=== PATIENT | female | born 1970 | race Caucasian/White ===

== ENCOUNTER 2019-12-07 13:17 | Emergency (ER) | payer BC, SELFPAY ==
[2019-12-07 13:31] VITALS: BP 150/101; PULSE 78; RESP 20; TEMP 36.4; O2SAT 97; BMI 24.3
--- NOTE | 2019-12-07 13:37 | XR_ITS ---
PROCEDURE: XR CHEST 2V CLINICAL HISTORY: cough COMPARISON: XR CHEST 2V from 09/14/2019 FINDINGS: The cardiomediastinal silhouette and pulmonary vascularity are within normal limits. Patchy infiltrate is present in the lingula. This is not significantly changed than when compared to the previous study. No acute bony abnormalities. IMPRESSION: Persistent lingular infiltrate. CT with contrast may provide further evaluation in the setting of a chronic infiltrate Dictated by: Maxim Poon MD 12/07/2019 15:48 Electronically signed by Maxim Poon MD in [place] 12/07/2019 15:48
--- NOTE | 2019-12-07 13:42 | PC.NURSE ---
PT TO RAD
--- NOTE | 2019-12-07 13:51 | HMH.EDUTC ---
[facility] – [place] Disposition Clinical Impression: Pneumonia Qualifiers: Pneumonia type: due to unspecified organism Laterality: unspecified laterality Lung location: unspecified part of lung Qualified Code(s): J18.9 - Pneumonia, unspecified organism Disposition: Home, Self-Care Condition on Discharge: Good Instructions: Pneumonia-Adult Additional Instructions: Drink plenty of fluids. Take tylenol or ibuprofen for pain or fever. Take the medications as directed. Follow up with your regular doctor. GO TO THE ER FOR ANY WORSENING SYMPTOMS Prescriptions: Promethazine/Dextromethorphan [Promethazine-Dm Syrup] 5 ml PO Q6HP PRN #240 syrup PRN Reason: Cough Transmission Status: Received by [facility] levoFLOXacin [Levaquin 500mg tab] 500 mg PO DAILY #7 tab Transmission Status: Received by [facility] methylPREDNISolone [Medrol] 4 mg PO DIRECTED 6 Days #21 tab.ds.pk Transmission Status: Received by [facility] guaiFENesin [Mucinex 600mg tablet] 1 - 2 tab PO BIDP PRN #30 tab.er.[id number] PRN Reason: Congestion Transmission Status: Received by [facility] Referrals: Provider,Referral, MD [Primary Care Provider] - Forms: Work/School Release Time of Disposition: 14:20 Medical Decision Making - Medical Records Medical records reviewed: No: I reviewed the patient's medical records. - Jack Inquiry Pt receiving controlled substance: No Vital Signs: 12/07/19 13:31 12/07/19 14:37 Temperature 97.5 F L 97.6 F Temperature Source Oral Pulse Rate 78 Pulse Rate [Left Radial] 78 Respiratory Rate 20 20 Blood Pressure 150/101 H Blood Pressure [Left Arm] 150/101 H Blood Pressure Mean [Left Arm] 117 Blood Pressure Source [Left Arm] Automatic Cuff Blood Pressure Position [Left Arm] Sitting 02 Sat by Pulse Oximetry 97 Oxygen Delivery Method Room Air - Lab Data Lab results reviewed: Yes: I reviewed the patient's lab results. Lab Results 12/07/19 13:38: Strep Scn Rapid Clinic Negative Orders (Tests/Meds): ED MEDICATIONS Discontinued Medications Generic Name Dose Route Start Last Admin Trade Name Freq PRN Reason Stop Dose Admin Ceftriaxone Sodium 1 gm 12/07/19 14:04 12/07/19 14:13 Rocephin 1gm Vial IM 12/07/19 14:05 1 gm ONCE ONE Administration Protocol Lidocaine HCl 0 ml 12/07/19 14:04 12/07/19 14:13 Lidocaine 1% 10ml Mdv IM 12/07/19 14:05 2.1 ml ONCE ONE Administration Methylprednisolone Sodium Succinate 125 mg 12/07/19 14:04 12/07/19 14:13 Solu-Medrol 125mg/2ml Vial IM 12/07/19 14:05 125 mg ONCE ONE Administration ORDERS Category Date Time Status SARS-CoV-2, VIVIANE Stat Lab 12/07/19 14:40 Received Strep Screen Confirmation Stat Micro 12/07/19 13:38 Received - Radiology Data #1 Image(s): Chest Image Reviewed: Yes I reviewed the patient's radiology image, Yes I have reviewed radiologist's interpretation Preliminary Findings: Abnormal PROCEDURE: XR CHEST 2V CLINICAL HISTORY: cough COMPARISON: XR CHEST 2V from 09/14/2019 FINDINGS: The cardiomediastinal silhouette and pulmonary vascularity are within normal limits. Patchy infiltrate is present in the lingula. This is not significantly changed than when compared to the previous study. No acute bony abnormalities. IMPRESSION: Persistent lingular infiltrate. CT with contrast may provide further evaluation in the setting of a chronic infiltrate Dictated by: Maxim Poon MD 12/07/2019 15:48 Electronically signed by Maxim Poon MD in [place] 12/07/2019 15:48 [facility] [place] HPI - General Stated complaint: cough,ear pain Time Seen by Provider: 12/07/19 13:51 Mode of Arrival: Ambulatory Source of Information: Patient Limitations: No Limitations Description of Symptoms (Recalled from Triage Doc. by RN): PT STATES THAT SHE INITIALLY BECAME ILL WITH AN URI A DAY BEFORE AND GOT BETTER. PT STATES THAT IT RETURNED IN AUGUST A
[2019-12-07 13:55] LABS: UTC Strep Screen (Rapid) Negative (Negative)
--- NOTE | 2019-12-07 14:04 | PC.NURSE ---
NOTIFIED ROBERTA IN LAB OF COVID SWAB ORDER
[2019-12-07 14:37] VITALS: BP 150/101; PULSE 78; RESP 20; TEMP 36.4; O2SAT 97
[2019-12-10 08:39] LABS: Covid-19 Nasal PCR Sendout Lex Not Detected
--- NOTE | 2019-12-10 08:54 | PC.NURSE ---
0848 PT NOTIFIED OF NEAGTIVE COVID-19 TEST RESULTS
== END 2019-12-07 14:40 | disposition home or self-care (01) ==
PROVIDERS: Emergency Provider Nurse Practitioner Family
DX: J18.9 Pneumonia, unspecified organism (principal); Z90.09 Acquired absence of other part of head and neck
CPT/HCPCS: 71046; 87880; 96372; 99202; 99203; U0004

== ENCOUNTER 2020-11-13 11:59 | Emergency (ER) | payer BC, SELFPAY ==
[2020-11-13 12:14] VITALS: BP 146/89; PULSE 86; RESP 17; TEMP 36.7; O2SAT 98; BMI 23.8
--- NOTE | 2020-11-13 12:24 | HMH.EDUTC ---
[facility] [place] Clinical Impression: Rash Disposition: Home, Self-Care Condition on Discharge: Good Instructions: Fibromyalgia (Alternative Therapy), DI for Rash Additional Instructions: Take medication as prescribed Follow up with Family Doctor if no improvement or any worsening of symptoms Return if needed Straight to ER if any life threatening symptoms Prescriptions: methylPREDNISolone [Medrol 4mg tab] 4 mg PO DIRECTED #21 tab Transmission Status: Received by [facility] Referrals: Reji Cox MD [Primary Care Provider] - As needed Time of Disposition: 12:34 Medical Decision Making - Jack Inquiry Pt receiving controlled substance: No Jack was queried for this patient: No Vital Signs: 11/13/20 12:14 11/13/20 12:41 Temperature 98.1 F 98.1 F Temperature Source Oral Oral Pulse Rate 86 Pulse Rate [Right Brachial] 86 Respiratory Rate 17 17 Blood Pressure 146/89 H Blood Pressure [Right Arm] 146/89 H Blood Pressure Mean [Right Arm] 108 Blood Pressure Source Automatic Cuff Blood Pressure Source [Right Arm] Automatic Cuff Blood Pressure Position Sitting Blood Pressure Position [Right Arm] Sitting 02 Sat by Pulse Oximetry 98 Oxygen Delivery Method Room Air Room Air Orders (Tests/Meds): ED MEDICATIONS Discontinued Medications Generic Name Dose Route Start Last Admin Trade Name Freq PRN Reason Stop Dose Admin Methylprednisolone Sodium Succinate 125 mg 11/13/20 12:28 11/13/20 12:33 Methylprednisolone Sod Succ 125mg Vial IM 11/13/20 12:29 125 mg ONCE ONE Administration Medical Decision Narrative: Patient state that she has taken solu medrol before without reaction or complications [facility] [place] - General Stated complaint: hives Time Seen by Provider: 11/13/20 12:24 Mode of Arrival: Ambulatory Source of Information: Patient Limitations: No Limitations Description of Symptoms (Recalled from Triage Doc. by RN): Pt complains hernán hives & swollen knots on face, legs & back x3 days. HEENT Symptoms (Recalled from RN notes): No Resp Symptoms (Recalled from RN notes): No Skin Symptoms (Recalled from RN notes): Yes MS Symptoms (Recalled from RN notes): No Functional Status (Recalled from RN notes): wnl - History of Present Illness Provider Complaint: Patient state that she has fibro and sometimes breaks out in rash has hives and small hard like areas under her skin State that she sometimes has to come in and get a steriod shot and medrol pack to help with the rash State that she noticed it a couple days ago and it has continued to get worse so she came in - Related Data Home Medications Medication Instructions Recorded Confirmed Cyclobenzaprine HCl [Flexeril 10mg 20 mg PO Q8HP PRN 09/14/19 09/18/20 tablet] lamoTRIgine [Lamotrigine] 200 mg PO HS 09/14/19 09/18/20 levETIRAcetam [Keppra 500mg tablet] 1,000 mg PO BID 09/14/19 09/18/20 nadoloL [Corgard] 40 mg PO DAILY 09/14/19 09/18/20 Previous Rx's Medication Instructions Recorded albuterol sulfate 90 mcg/actuation 2 puff INHALATION Q8H PRN #18 g 06/04/20 aerosol inhaler hydrocodone 5 mg-acetaminophen 325 1 tab PO DAILY PRN #30 tab 06/04/20 mg tablet ibuprofen 800 mg tablet 800 mg PO Q8H #30 tab 06/04/20 methylprednisolone 4 mg tablets in See Rx Instructions PO PER PKG DIR 09/18/20 a dose pack #21 tab tramadol 50 mg tablet 50 mg PO BID PRN #60 tab 09/18/20 zolpidem 10 mg tablet 10 mg PO HS PRN #30 tab 09/18/20 methylPREDNISolone [Medrol 4mg 4 mg PO DIRECTED #21 tab 11/13/20 tab] Allergies Allergy/AdvReac Type Severity Reaction Status Date / Time mushroom Allergy Severe Anaphylaxis Verified 09/18/20 09:44 latex Allergy Verified 09/18/20 09:44 Sulfa (Sulfonamide Allergy Verified 09/18/20 09:44 Antibiotics) - Worker's Comp Is this a Worker's Comp case?: No [facility] History - Hepatitis A Screen Drug use history?: No High risk sexual behaviors?: No H
[2020-11-13 12:41] VITALS: BP 146/89; PULSE 86; RESP 17; TEMP 36.7; O2SAT 98
== END 2020-11-13 12:42 | disposition home or self-care (01) ==
PROVIDERS: Emergency Provider Nurse Practitioner; PCP Emergency Medicine
DX: R21 Rash and other nonspecific skin eruption (principal); G40.909 Epilepsy, unspecified, not intractable, without status epilepticus; M79.7 Fibromyalgia; Z88.2 Allergy status to sulfonamides; Z91.040 Latex allergy status
CPT/HCPCS: 96372; 99202; G0463

== ENCOUNTER → 2021-06-26 14:34 | Outpatient (CLI) | payer BC, SELFPAY ==
[2021-06-26 14:44] LABS: Basophils % 0.1 % (0.1-2.0); Hematocrit 34.4 % (37.0-47.0); Hemoglobin 11.4 g/dL (12.2-16.2); Lymphocytes # 1.3 K/mm3 (0.7-4.5); Lymphocytes % 36.3 % (10-50); Mean Corpuscular HGB Conc 33.2 g/dL (31.8-35.4); Mean Corpuscular Hemoglobin 26.6 pg (27.0-31.2); Mean Corpuscular Volume 80.2 fl (81-99); Mean Platelet Volume 9.4 fl (7.4-10.4); Monocytes # 0.2 K/mm3 (0.1-1.0); Monocytes % 6.2 % (1.7-9.3); Neutrophils # 2.1 K/mm3 (1.8-7.8); Neutrophils % 57.3 % (37.0-80.0); Platelet Count 299 K/mm3 (142-424); Red Blood Count 4.29 M/mm3 (4.20-5.40); Red Cell Distribution Width 15.6 % (11.5-17.5); White Blood Count 3.6 K/mm3 (4.8-10.8)
[2021-06-26 14:55] LABS: Alanine Aminotransferase 9 U/L (12-78); Albumin/Globulin Ratio 1.1 (1.1-1.8); Alkaline Phosphatase 98 U/L (38-126); Anion Gap 12.3 mEq/L (5-15); Aspartate Amino Transferase 29 U/L (14-36); Bilirubin,Total 0.2 mg/dl (0.2-1.3); Blood Urea Nitrogen 7 mg/dl (7-17); Calcium 9.5 mg/dl (8.4-10.2); Carbon Dioxide 26 mmol/L (22.0-30.0); Chloride 104 mmol/L (98-107); Chol/HDL Ratio 4.5 (1-3.5); Cholesterol 178 mg/dl (140-200); Estimated Glomerular Filt Rate 76 ml/min (>60); GFR (African American) 92 ML/MIN (>60); Globulin 3.5 g/dL (1.3-3.2); Glucose 77 mg/dl (74-100); HDL Cholesterol 40 mg/dl (40-60); Potassium 4.3 mmoL/L (3.5-5.1); Sodium 138 mmol/L (136-145); Total Protein,Serum 7.5 g/dl (6.3-8.2); Triglycerides 102 mg/dl (30-150); VLDL Cholesterol 20 mg/dL (0-40)
[2021-06-26 15:07] LABS: Direct LDL Cholesterol 102.67 mg/dL (100-129)
[2021-06-26 15:12] LABS: Free T4 (Free Thyroxine) 1.47 ng/dl (0.78-2.19)
[2021-06-26 15:14] LABS: 25-OH Vitamin D, Total 50.9 ng/mL (30-100)
[2021-06-26 15:27] LABS: Thyroid Stimulating Hormone 0.58 uIU/mL (0.465-4.68)
== END ==
PROVIDERS: Visit Provider Nurse Practitioner Family
DX: E03.9 Hypothyroidism, unspecified (principal); R53.83 Other fatigue; K59.00 Constipation, unspecified
CPT/HCPCS: 80053; 80061; 82306; 84439; 84443; 85025

== ENCOUNTER → 2021-07-11 08:03 | Outpatient (CLI) | payer BC, SELFPAY ==
--- NOTE | 2021-07-11 08:09 | CA_ITS ---
APPROVED REPORT EXAM: Comprehensive 2D, Doppler, and color-flow Echocardiogram Mailroom Messenger: Beena Medina RT(R) Ht: 5 ft 9 in Wt: 151lbs BSA: 1.83 BP: 124/70 mmHg Indications: SOA, CP 2D Dimensions LVOT 1.93 cm (M/F) 1.5-2.5 LA Volume 25.80 mL LA Volume Index 14.09 mL/m2 (M/F) 16-34 M-Mode Dimensions RVDd 2.65 cm (0.9-2.6) LA Diam 2.56 cm (1.9-4.0) LVDd 4.12 cm (3.5-5.7) Ao Diam 2.83 cm (2.0-3.7) LVDs 3.15 cm (3.5-5.7) IVSd 0.74 cm (0.6-1.1) PWd 0.70 cm (0.6-1.1) EF (Teich) 47.50% FS 23.50% EDV (Teich) 75.10 mL ESV (Teich) 39.40 mL LV Diastology E Decel Time 173.00 (160-240 msec) E/A Ratio 1.1 MED E' 7.80 (< 7 cm/sec) E'/MED E' Ratio 8.19 (>14) LAT E' 8.20 (<10 cm/sec) E/LAT E' Ratio 7.79 (>14) Mitral Valve MV E Max Theodore. 64.00 (40-130 cm/s) MV A Velocity 59.00 (40-130 cm/s) E/A Ratio 1.08 MV Decel. Time 173.00 (160-240 ms) MV PHT 51.00 ms Tricuspid Valve TR P. Velocity 235.00 cm/s RAP Estimate 15.00 mmHg RVSP 37.00 mmHg Left Ventricle Left atrium is normal size, left ventricle is normal size, there is no concentric left ventricular hypertrophy, visually estimated ejection fraction 55% with no regional wall motion abnormality. Diastolic parameters are within normal range. Right Ventricle Right atrium and right ventricle are normal size and contractility. Aortic Valve Aortic valve is grossly normal, there is no aortic stenosis or aortic insufficiency. Mitral Valve Mitral valve grossly normal, there is trace mitral regurgitation. Tricuspid Valve Tricuspid valve grossly normal, there is trace tricuspid regurgitation, tricuspid regurgitation jet velocity is inadequate for calculation of the right ventricular systolic pressure. Pulmonic Valve Pulmonic valve is poorly visualized. Great Vessels Aortic root is normal size. Inferior vena cava normal size with normal inspiratory collapse. Pericardium No significant pericardial effusion noted. Conclusion 1. Normal left ventricular size, preserved left ventricular systolic function, visually estimated ejection fraction 55% with no regional wall motion abnormality, diastolic parameters are within normal range. 2. Trace mitral and tricuspid regurgitation. 3. No significant pericardial effusion noted. 4. Inferior vena cava is normal size with normal inspiratory collapse. Electronically signed by : Chet Ordoñez MD 07/11/2021 11:11:00
--- NOTE | 2021-07-11 10:20 | CA_ITS ---
APPROVED REPORT Exam: Exercise Treadmill Technologist: Nancy Self, Ht: 5 ft 9 in Wt: 151 lbs BSA: 1.83 m2 HR: 64 bpm BP: 118/79 mmHg Medical History Medications: Ibuprofen,,,,, Levetiracetam,,,,, Ambien,,,,, Nadolol,,,,, LaMotrigine,,,,, Epinephrine,,,,, Stress Test Details Test: Van HR Resting HR: 72 bpm Max Heart Rate (APMHR): 170.736497 bpm Max HR Achieved: 134 bpm Target HR (85% APMHR): 144.995332 bpm % of APMHR: 78.82 Recovery HR: 70 bpm BP Resting BP: 115/67 mmHg Max BP: 172/89 mmHg Recovery BP: 146.0/105.0 mmHg ECG Clinical Exercise duration: 07:38 min Highest Stage Achieved: Exercise capacity: 10.1 METs Stress ECG Conclusion Max HR: 134 Test stopped due to: leg and arm fatigue Symptoms: arm and leg fatigue. No chest pain. No SOA Arrythmias/Ectopy: None ST-T Chages: <1.5mm ST Segment changes Test Summary RECOVERY 06:54 0.0 0.0 69 . 146/105 . . REST . . . . . . . Standing REST 10:27 0.0 0.0 72 . 115/ 67 . . Stage 1 01:00 10.0 1.7 91 . . . . Stage 1 02:00 10.0 1.7 95 . . . . Stage 1 03:00 10.0 1.7 94 . 98/ 62 . . Stage 2 01:00 12.0 2.5 103 . . . . Stage 2 02:00 12.0 2.5 106 . . . . Stage 2 03:00 12.0 2.5 107 . 120/ 82 . . Stage 3 01:00 14.0 3.4 103 . . . . Stage 3 01:38 14.0 3.4 124 . . . Stop exercise at 07:38 RECOVERY 01:00 0.0 0.0 86 . . . . RECOVERY 02:00 0.0 0.0 73 . . . . RECOVERY 03:00 0.0 0.0 68 . 172/ 89 . . RECOVERY 04:00 0.0 0.0 67 . 165/ 97 . . RECOVERY 05:00 0.0 0.0 68 . 165/ 97 . . RECOVERY 06:00 0.0 0.0 68 . 155/ 97 . . RECOVERY 06:54 0.0 0.0 69 . 146/105 . . Electronically signed by : Klever Alston MD 07/12/2021 06:17:13
== END ==
LOC: RT 08:04
PROVIDERS: PCP Emergency Medicine; Visit Provider Nurse Practitioner Family
DX: R07.9 Chest pain, unspecified (principal)
CPT/HCPCS: 93017; 93306